=== PATIENT | male | born 1995 | race Caucasian/White ===

== ENCOUNTER 2017-12-20 16:01 | Emergency (ER) | payer OTHER ==
--- NOTE | 2017-12-20 16:26 | EDPHY ---
General Time Seen by Provider: 12/20/17 16:17 - History Smoking Status: Never smoked - Objective Vital Signs: Initial Vital Signs Temperature (C) 36.9 C 12/20/17 16:02 Heart Rate 92 12/20/17 16:02 Respiratory Rate 18 12/20/17 16:02 Blood Pressure 127/78 H 12/20/17 16:02 O2 Sat (%) 97 12/20/17 16:02 O2 Delivery Mode Room Air Allergies/Adverse Reactions: No Known Allergies Allergy (Unverified 12/20/17 16:07) Home Medications: Medication Instructions Recorded Prozac 10 MG (*) 12/20/17 Departure - Departure Referrals: Rita Landaverde MD [Primary Care Provider] - As per Instructions
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
[2017-12-20 16:53] LABS: PLATELET COUNT 349 10^3/uL (150-400)
[2017-12-20] MEDS ORDERED: LORazepam 1 MG TAB PO ONE (16:58)
[2017-12-20 19:36] VITALS: BP 132/60
--- NOTE | 2017-12-20 19:36 | ASMTTCLDSP ---
TLC Discharge Disposition Disposition: Answers: Discharge If Answers: Yes DISCHARGED: Patient/family given suicide hotline info & SAMHSA brochure? Disposition Notes: Notes: In consultation with [facility] ED physician, Christiano Aguilar MD, and on-call psychiatrist, Dylan Farr MD, both concurred that pt does not appear to meet 27-65 criteria requiring psychiatric hospitalization as pt does not appear to be an imminent risk of harm to self or others, due to a mental illness condition. Discharge Concerns/Recommendations: Notes: Pt can be discharged home and should follow up with out patient treatment resources. PT was given IOP and DBT out patient referals, and was instructed how to find additional resources. PT agreed to follow up with out pt tx. Pt was voluntary and not on a hold. Was patient given the Answers: Not applicable Inpatient Behavioral Health Prohibited Belongings List while in the ED? Date Signed: 12/20/2017 07:35 PM Electronically Signed By:Yohannes Green
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
== END 2017-12-20 19:42 | disposition home or self-care (01) ==
PROC: GZ11ZZZ Psychological Tests, Personality and Behavioral (ICD-10-PCS; principal; 2017-12-20)
DX: R45.4 Irritability and anger (principal); F43.21 Adjustment disorder with depressed mood
CPT/HCPCS: 80305; G0480

== ENCOUNTER → 2018-03-04 | Outpatient (CLI) | payer OTHER ==
--- NOTE | 2018-03-04 15:22 | CPEEG ---
DATE OF STUDY: 03/04/2018 INTERPRETATION: This 4-hour video EEG recording is abnormal due to the presence of generalized atypical spike and wave discharges. These findings would be consistent with a generalized seizure disorder. During the video EEG monitoring session, the patient did not have any clinical events. The findings of this abnormal EEG were directly communicated to the primary neurologic provider, Dr. Zachariah Herrmann. REPORT: This 4-hour video EEG contains 10 Hz alpha activity of the posterior head regions. The primary feature of this recording was the presence of generalized atypical spike and wave discharges at rest. There was no specific additional activation with photic stimulation or hyperventilation. The patient became drowsy and fell asleep during the study. During drowsiness and sleep, there was increased activation of generalized atypical spike-wave discharges. The patient did not have any clinical events during the video EEG monitoring session. /[id number]/MODL MTDD
== END ==
LOC: FCPNEURO 08:02
PROVIDERS: ATTEND Psychiatry & Neurology Neurology
DX: R55 Syncope and collapse (principal)

== ENCOUNTER → 2018-03-10 | Outpatient (CLI) | payer OTHER ==
[~2018-03-10] MED LIST: GADOBUTROL 10 ML VIAL IVP ONE
== END ==
LOC: FIMAGING 13:09
PROVIDERS: ATTEND Psychiatry & Neurology Neurology
DX: R56.9 Unspecified convulsions (principal); R55 Syncope and collapse
CPT/HCPCS: A9585

== ENCOUNTER 2018-06-04 20:21 | Emergency (ER) | payer OTHER ==
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
[2018-06-04] MEDS ORDERED: NS 1,000 ML IV ONE (20:58)
[2018-06-04 21:08] LABS: PLATELET COUNT 293 10^3/uL (150-400)
[2018-06-04] MEDS ORDERED: ONDANSETRON 4 MG/2 ML VIAL IVP ONE (21:08)
[2018-06-04 21:46] VITALS: BP 117/81
--- NOTE | 2018-06-05 00:14 | CPEKG ---
Test Reason : OPEN Blood Pressure : / mmHG Vent. Rate : 097 BPM Atrial Rate : 097 BPM P-R Int : 159 ms QRS Dur : 099 ms QT Int : 356 ms P-R-T Axes : 075 088 046 degrees QTc Int : 452 ms Sinus rhythm Confirmed by Shelly Hartley ([id number]) on 06/05/2018 12:14:21 AM Referred By: Confirmed By:Shelly Hartley
--- NOTE | 2018-06-05 00:14 | CPEKG ---
Test Reason : OPEN Blood Pressure : / mmHG Vent. Rate : 095 BPM Atrial Rate : 095 BPM P-R Int : 152 ms QRS Dur : 095 ms QT Int : 353 ms P-R-T Axes : 081 091 046 degrees QTc Int : 444 ms Sinus rhythm Borderline right axis deviation ST elev, probable normal early repol pattern Confirmed by Shelly Hartley ([id number]) on 06/05/2018 12:14:27 AM Referred By: Confirmed By:Shelly Hartley
== END 2018-06-04 21:46 | disposition home or self-care (01) ==
DX: G40.909 Epilepsy, unspecified, not intractable, without status epilepticus (principal)
CPT/HCPCS: 96374; G0480; J2405

== ENCOUNTER → 2018-07-28 | Outpatient (CLI) | payer OTHER | LOC: EDSTATUS 09:09 → GIMAGING 15:55 | PROVIDERS: ATTEND Family Medicine | DX: S90.811D Abrasion, right foot, subsequent encounter (principal) | CPT/HCPCS: 73620-PO ==

== ENCOUNTER 2018-08-12 17:02 | Inpatient (IN) | payer OTHER ==
[2018-08-12] MEDS ORDERED: MAGNESIUM HYDROXIDE 30 ML UDCUP PO PRN (18:56)
[2018-08-12] MEDS ORDERED: MAG HYDROX/AL HYDROX/SIMETH 30 ML UDCUP PO PRN (18:56)
[2018-08-12] MEDS ORDERED: ACETAMINOPHEN 325 MG TAB PO PRN (18:56)
[2018-08-12] MEDS: levETIRAcetam 500 MG TAB PO SCH (21:14)
[2018-08-13] MEDS: LORazepam 0.5 MG TAB PO PRN ×2 (00:09→21:10)
[2018-08-13] MEDS: levETIRAcetam 500 MG TAB PO SCH ×2 (08:38→20:02)
[2018-08-13] MEDS: VENLAFAXINE XR 150 MG CAP PO SCH (08:38)
--- NOTE | 2018-08-13 09:29 | ASMTBHMTP ---
Master Treatment Plan Master Treatment Plan Answers: Depressed Mood with for: Suicidal Ideation Date: 08/13/2018 Diagnosis on Admission: MDD, Generalized Anxiety Disorder, OCD and Asperger's Expected length of stay: 3-5 Reason for admission: Notes: Ct. was a direct admit from [facility] outpatient services after he escalated during a session with his therapist Domenica Agudelo and threw a cup of tea on the floor. Patient's stated presenting problems: Notes: "I was seeing my therapist and she became alarmed and called security". Patient's goals for treatment: Notes: "To get out". 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 Identify supports outside of hospital: Notes: No support system. Discharge criteria: Notes: Suicidal ideation will resolve and ct. will have a plan to safely manage recurrent suicidal ideation. Initial disposition plan/considerations: Notes: Ct. will participate in groups and unit activities. Master Treatment Plan Required Signatures Psychiatrist signature: Answers: Psychiatrist: RN on-shift signature: Answers: RN: Patient signature: Answers: Patient: Date Signed: 08/13/2018 09:27 AM Electronically Signed By:Jody Davalos
[2018-08-13 09:36] LABS: PLATELET COUNT 274 10^3/uL (150-400)
--- NOTE | 2018-08-13 13:37 | BCON ---
[f rep ] BEHAVIORAL HEALTH CONSULTATION INTERNAL MEDICINE CONSULTATION DATE OF CONSULTATION: 08/13/2018 REFERRING PHYSICIAN: Dr. Licona REASON FOR REFERRAL: Medical clearance for inpatient behavioral health stay. HISTORY OF PRESENT ILLNESS: This patient was referred to Inpatient Behavioral Health directly from his psychiatrist's office for aggressive behavior. He is currently without any acute complaints. PAST MEDICAL HISTORY: Seizure disorder first diagnosed in January of 2018. PAST SURGICAL HISTORY: He has not any surgeries. MEDICATIONS: 1. Levetiracetam 1000 mg p.o. b.i.d. 2. Venlafaxine 150 mg p.o. daily. 3. Fluoxetine 20 mg p.o. daily. ALLERGIES: There are no known drug allergies. SOCIAL HISTORY: He reports he lives with his father. He has completed college. 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 He is a nonsmoker. He uses occasional alcohol and he denies use of other substances of abuse. FAMILY HISTORY: Noncontributory. REVIEW OF SYSTEMS: He reports his last seizure was in May and he has had no seizures since then. He thinks it may have been precipitated by lack of sleep. He denies fevers, chills, weight change, cough, dyspnea, nausea, vomiting, constipation, or diarrhea. He reports his weight has been stable. He denies any neurologic symptoms. Otherwise, a 10-point review of systems is negative. PHYSICAL EXAM: VITAL SIGNS: Blood pressure is 101/54, heart rate is 72, respiratory rate is 16, oxygen saturation is 97% on room air, temperature is 36.4 degrees centigrade. His weight is 68 kg for a body mass index of 21.5. GENERAL: This is a well-nourished, well-developed, thin man, dressed in street clothes, cooperative, and in no acute distress. HEENT: Extraocular movements are intact. Pupils are equal, round, and reactive to light. Mucous membranes are moist. Dentition is in good condition. He has an uncrowded airway, Mallampati class 1. NECK: Supple. HEART: Regular rate and rhythm with no murmurs, rubs, or gallops. LUNGS: Clear to auscultation bilaterally. ABDOMEN : Benign. EXTREMITIES: There is no cyanosis, clubbing, or edema. NEUROLOGIC : He is alert and oriented x3. Cranial nerves 2 through 12 are grossly intact. There is no focal weakness. Sensation is intact to light touch and gait is normal. LABORATORY STUDIES: From the emergency department, his CBC was normal. Serum chemistries were rejected for an inadequate sample. Hemoglobin A1c was 5.5. Toxicology screen in the urine was negative for any substances of abuse. In May when he was evaluated for his last seizure, his renal function and electrolytes were normal. ASSESSMENT AND RECOMMENDATIONS: 1. Mental health issues pending further evaluation and management per Psychiatry and the mental health team. 2. Seizure disorder. His mental health issues per chart review seem to predate initiation of levetiracetam, though it is possible that there could be a relationship with the agitation that can be caused by levetiracetam. If he is otherwise refractory to psychiatric treatment, might consider discussing with Neurology regarding changing his anticonvulsant. I see no medical contraindications to this patient's continued stay on the inpatient behavioral health unit or to any psychiatric medications or procedures. Thank you very much for including me in the care of this patient and please do not hesitate to contact me or the hospitalist service should there be need for further medical evaluation. /[id number]/MODL MTDD
--- NOTE | 2018-08-13 18:11 | PDMN ---
Medical Necessity Medical necessity: Pt meets inpt criteria per MD order and [id number], Major Depressive Disorder, Adult: Inpatient Care, 3 days. 23 y/o admitted w/MDD, gen anxiety disorder, OCD, and Asperger's, w/recent suicidal ideation pt requires inpt psychiatric hospitalization.
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
[2018-08-14] MEDS: levETIRAcetam 500 MG TAB PO SCH ×2 (08:36→21:03)
[2018-08-14] MEDS: VENLAFAXINE XR 150 MG CAP PO SCH (08:36)
--- NOTE | 2018-08-14 13:46 | ASMTBHFAM ---
Notes Note: Notes: CC met with ct. and his father to discuss discharge and to set up some goals. Focus of the meeting was to coming up with short term goals and present additional services in the community. Ct. discussed his preference to work at [employer]. Ct. 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 Ct. was able to expressed his frustration with a remark FOC made about how "depressing" working at [employer] is. FOC apologized for the remark. CC gave both ct. and FOC a handout with information about the [facility]ism [facility], and discussed [facility] services. Ct. and FOC were encouraged to research these resources. Also discussed tension in the relationships between ct. and FOC and ct.'s tendency to attach negative meaning to FOC intentions. Ct. and FOC were referred to outpatient team to continue discussing above issues. Date Signed: 08/14/2018 01:46 PM Electronically Signed By:Jody Davalos
--- NOTE | 2018-08-14 18:07 | SOAPPROG ---
SOAP Progress Note Assessment/Plan: Assessment: Plan: 08/14/18 18:06 Psychosis: Improved, but still guarded. Poor reality testing, ongoing idiosyncratic reasoning. Will CCM. Possible d/c tomorrow if all is well and father is agreeable. Subjective: Pt seen, discussed with staff. Interviewed individually and in Treatment Team meeting. He remains insistent that his F is the root of all of his problems. Had family meeting with F that reportedly went well. Compliant with treatments. No c/o's other than wanting to go home. Objective: Vital Signs Temp Pulse Resp BP Pulse Ox 36.6 C 97 16 108/60 95 08/14/18 06:00 08/14/18 06:00 08/14/18 06:00 08/14/18 06:00 08/14/18 06:00 Laboratory Results 08/13/18 06:00 08/13/18 06:00 MSE: marginally groomed, guarded. Affect is restricted, irritable. Mood is "bad." TP is generally linear. TC reveals no mention of paranoid thoughts. Denies SI/HI/. - Time Spent With Patient Time Spent With Patient: 25" ICD10 Worksheet Patient Problems: Problems Problem Status Onset Major depressive disorder Acute - ICD10 Problem Qualifiers (1) Major depressive disorder
[2018-08-15 06:45] VITALS: BP 106/60
[2018-08-15] MEDS: VENLAFAXINE XR 150 MG CAP PO SCH (08:22)
[2018-08-15] MEDS: levETIRAcetam 500 MG TAB PO SCH (08:22)
--- NOTE | 2018-08-15 09:18 | ASMTCMCOM ---
CM Note CM Note Notes: CC checked in with ct. who is being discharged today. Ct. reported that he is doing well and that he is glad that he is being discharged. He reported that the admission helped him clarify what he needs to work on. Date Signed: 08/15/2018 09:17 AM Electronically Signed By:Jody Davalos
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
== END 2018-08-15 13:22 | disposition home or self-care (01) | DRG 885 ==
LOC: BBEH 17:02
PROVIDERS: ADMIT Psychiatry & Neurology Behavioral Neurology & Neuropsychiatry; ATTEND Psychiatry & Neurology Psychiatry
DX: F33.2 Major depressive disorder, recurrent severe without psychotic features (principal); F84.5 Asperger's syndrome; G40.909 Epilepsy, unspecified, not intractable, without status epilepticus
CPT/HCPCS: 80307; G0480